=== PATIENT | male | born 1955 | race Caucasian/White ===

== ENCOUNTER → 2024-04-20 11:20 | Outpatient (REF) | payer OTHER, SELFPAY | LOC: DHCBC/DCA 11:20 | PROVIDERS: ATTENDING PHYSICIAN Student in an Organized Health Care Education/Training Program; FAMILY PHYSICIAN Nurse Practitioner Adult Health | DX: Z01.818 Encounter for other preprocedural examination (principal) | CPT/HCPCS: 78452; 93017; A9500; J2785 ==

== ENCOUNTER → 2024-12-07 11:23 | Outpatient (REF) | payer OTHER, SELFPAY ==
[2024-12-07 15:44] LABS: % Basophils 0.4 % (0-2); % Eosinophils 1.9 % (0-6); % Immature Granulocytes 0.2 % (0-0.5); % Lymphocytes 25.9 % (20.5-51.1); % Monocytes 4.6 % (1.7-9.3); Absolute Eosinophils 0.2 10^3/uL (0-0.7); Absolute Lymphocytes 2.4 10^3/uL (1.2-3.4); Absolute Monocytes 0.4 10^3/uL (0.1-0.6); Absolute Neutrophils 6.3 10^3/uL (1.4-6.5); Hematocrit 40.8 % (39.0-52.0); Hemoglobin 13.5 g/dL (13.0-18.0); Mean Corp Hgb Conc. 33.1 g/dL (33.0-37.0); Mean Corpuscular Hgb 27.3 pg (27.0-31.0); Mean Corpuscular Volume 82.4 fL (80.0-94.0); Nucleated Red Blood Cells % 0 % (-); Platelet Count 462 10^3/uL (130-400); Red Blood Cell Count 4.95 10^6/uL (4.70-6.10); Red Cell Dist. Width 15.7 % (11.5-14.5); White Blood Cell Count 9.4 10^3/uL (4.8-10.8)
[2024-12-07 15:46] LABS: ALT (SGPT) 15 U/L (0-50); AST (SGOT) 17 U/L (17-59); Alkaline Phosphatase 110 U/L (38-126); Blood Urea Nitrogen 19 mg/dl (9-20); Carbon Dioxide 25 mmol/L (22-30); Chloride 113 mmol/L (98-107); Glucose 75 mg/dl (70-99); HDL Cholesterol 41 mg/dl; LDL Cholesterol, Calculated 49 mg/dl; Potassium 4.3 mmol/L (3.5-5.1); Sodium 143 mmol/L (135-145); Total Bilirubin 1.2 mg/dl (0.2-1.3); Total Cholesterol 108 mg/dl (50-199); Total Protein 6.4 g/dl (6.3-8.2); Triglyceride 90 mg/dl (10-149); Very Low Density Lipoprotein 18 mg/dl (0-30); eGFR > 60.00
[2024-12-07 16:04] LABS: Vitamin D, 25-OH*** 16.2 ng/mL (30-80)
[2024-12-07 16:17] LABS: TSH Reflex To Free T4 0.46 uIU/ml (0.47-4.68)
[2024-12-07 16:47] LABS: Free T4 1.31 ng/dl (0.78-2.19)
== END ==
LOC: HWLAB 11:23
PROVIDERS: ATTENDING PHYSICIAN Nurse Practitioner Adult Health
DX: E11.9 Type 2 diabetes mellitus without complications (principal); D75.839 Thrombocytosis, unspecified; E78.00 Pure hypercholesterolemia, unspecified; E55.9 Vitamin D deficiency, unspecified; R80.9 Proteinuria, unspecified; K11.7 Disturbances of salivary secretion
CPT/HCPCS: 36415; 80053; 80061; 82306; 83036; 84439; 84443; 85025

== ENCOUNTER → 2025-04-19 12:42 | Outpatient (REF) | payer OTHER, SELFPAY ==
[2025-04-19 16:20] LABS: Free T3 3.42 pg/ml (2.77-5.27); Vitamin D, 25-OH*** 25.5 ng/mL (30-80)
[2025-04-19 16:33] LABS: PSA, Total - Screen 1.64 ng/ml (0.0-4.0); TSH 1.10 uIU/ml (0.47-4.68)
[2025-04-20 09:29] LABS: Glycohemoglobin (HgbA1c) 6.4 % (4.0-5.6)
== END ==
LOC: RAD 12:42
PROVIDERS: ATTENDING PHYSICIAN Nurse Practitioner Adult Health
DX: R60.0 Localized edema (principal); E11.9 Type 2 diabetes mellitus without complications; Z12.5 Encounter for screening for malignant neoplasm of prostate; E55.9 Vitamin D deficiency, unspecified; R79.89 Other specified abnormal findings of blood chemistry
CPT/HCPCS: 36415; 82306; 83036; 84436; 84439; 84443; 84481; 86376; 86800; 93971; G0103

== ENCOUNTER → 2025-05-10 09:04 | Outpatient (REF) | payer OTHER, SELFPAY | LOC: RAD 09:04 | PROVIDERS: ATTENDING PHYSICIAN Nurse Practitioner Adult Health | DX: Z89.429 Acquired absence of other toe(s), unspecified side (principal); I73.9 Peripheral vascular disease, unspecified; R60.0 Localized edema | CPT/HCPCS: 93922; 93925 ==

== ENCOUNTER → 2025-06-28 09:40 | Outpatient (REF) | payer OTHER, SELFPAY | LOC: RAD 09:40 | PROVIDERS: ATTENDING PHYSICIAN Nurse Practitioner Adult Health | DX: S32.040A Wedge compression fracture of fourth lumbar vertebra, initial encounter for closed fracture (principal); S32.050A Wedge compression fracture of fifth lumbar vertebra, initial encounter for closed fracture | CPT/HCPCS: 77080 ==

== ENCOUNTER → 2025-07-03 10:38 | Outpatient (REF) | payer OTHER, SELFPAY | LOC: RAD 10:38 | PROVIDERS: ATTENDING PHYSICIAN Surgery Vascular Surgery; FAMILY PHYSICIAN Nurse Practitioner Adult Health | DX: I65.29 Occlusion and stenosis of unspecified carotid artery (principal) | CPT/HCPCS: 93880 ==